=== PATIENT | female | born 1960 | race Caucasian/White ===

== ENCOUNTER 2019-11-16 16:28 | Observation (INO) | payer OTHER, MEDICARE ==
[2019-11-16] MEDS ORDERED: 0.9 % SODIUM CHLORIDE 1,000 ML IV ONE ×2 (16:31→17:13)
[2019-11-16] MEDS ORDERED: ONDANSETRON HCL/PF 4 MG/ 2ML VIAL IVP ONE (16:32)
--- NOTE | 2019-11-16 16:34 | ED Physician Documentation ---
Nausea/Vomiting/Diarrhea - HISTORIAN Historian: patient - HPI Chief Complaint: Nausea,Vomiting,Diarrhea Additional Information: 59 year old female presents with c/o nausea, vomiting, and diarrhea that started several days ago; cough and congestion started yesterday. She denies any fever or chills. Denies eating anything bad. States that she has not been able to hold anything down and has not been able to take her medications. Onset: days ago Duration: gradual Timing: gradual onset, still present Context: denies: out of country travel, bad food Severity: moderate - Associated Symptoms Vomiting: mild Diarrhea: mild, mucous Abdominal Pain: none - ROS CONST: none CVS/RESP: cough, dry cough. denies: shortness of breath GI/: none EYES/ENT: none MS/SKIN/LYMPH: denies: rash NEURO/PSYCH: none - PAST HX Past History: diabetes Type 2 Other History: hypertension Immunizations: UTD. denies: influenza Allergies/Adverse Reactions: Allergies Allergy/AdvReac Type Severity Reaction Status Date / Time codeine Allergy Verified 11/16/19 16:49 Penicillins Allergy Verified 11/16/19 16:49 tramadol Allergy Verified 11/16/19 16:50 trazodone Allergy Verified 11/16/19 16:50 Home Medications: Ambulatory Orders Medication Instructions Recorded Aspirin [Jimena] 81 mg PO DAILY 12/01/15 Nitroglycerin [Nitrostat] 0.4 mg SL Q5MIN PRN 12/01/15 Azithromycin [Zithromax] 250 mg PO DAILY #4 tablet 11/17/19 Benzonatate [Tessalon] 200 mg PO TID PRN #21 capsule 11/17/19 Ondansetron HCl Rapdis [Zofran Odt] 4 mg PO Q6 PRN #15 tab.rapdis 11/17/19 Potassium Chloride [Klor-Con M20] 20 meq PO DAILY #7 tab.er.prt 11/17/19 - SOCIAL HX Smoking History: non-smoker Alcohol Use: none Drug Use: none - FAMILY HX Family History: none - VITAL SIGNS Vital Signs: Vital Signs Temp Pulse Resp BP Pulse Ox 97.8 F 70 20 150/77 97 11/17/19 14:00 11/17/19 14:00 11/17/19 14:00 11/17/19 14:00 11/17/19 14:00 - REVIEWED ASSESSMENTS Nursing Assessment Reviewed: Yes Vitals Reviewed: Yes ED Results Lab/Radiology - Lab Results Lab Results: Lab Results 11/16/19 11/16/19 11/16/19 16:36 16:36 16:35 WBC 10.60 K/ul K/ul (4.00-12.00) RBC 4.47 M/ul M/ul (3.90-5.20) Hgb 13.0 g/dL g/dL (11.5-16.0) Hct 38.3 % % (34.5-46.5) MCV 86.0 fl fl (80.0-100.0) MCH 29.2 pg pg (28.0-34.0) MCHC 34.1 g/dL g/dL (30.0-36.0) RDW 13.4 % % (11.3-14.3) Plt Count 262 K/mm3 K/mm3 (130-400) Neut % (Auto) 77.6 % % (39.0-79.0) Lymph % (Auto) 13.2 % L % (16.0-50.0) Scurry % (Auto) 6.8 % % (0.0-11.0) Eos % (Auto) 1.8 % % (0.0-6.8) Baso % (Auto) 0.6 % % (0.0-1.5) Neut # (Auto) 8.3 # k/uL H # k/uL (1.4-7.7) Lymph # (Auto) 1.4 # k/uL # k/uL (0.6-4.0) Scurry # (Auto) 0.7 # k/uL # k/uL (0.0-0.9) Eos # (Auto) 0.2 # k/uL # k/uL (0.0-0.6) Baso # (Auto) 0.1 # k/uL # k/uL (0.0-0.5) Sodium 131 mmol/L L mmol/L (137-145) Potassium 2.7 mmol/L L mmol/L (3.5-5.1) Chloride 95 mmol/L L mmol/L (98-107) Carbon Dioxide 27 mmol/L mmol/L (22-30) Anion Gap 11.7 BUN 28 mg/dL H mg/dL (7-17) Creatinine 1.25 mg/dL H mg/dL (0.52-1.04) Est GFR ( Amer) > 60 (60 - ) Est GFR (Non-Af Amer) > 60 (60 - ) Glucose 306 mg/dL H mg/dL (74-106) Calcium 8.3 mg/dL L mg/dL (8.4-10.2) Total Bilirubin 0.6 mg/dL mg/dL (0.2-1.3) AST 25 U/L U/L (15-46) ALT 17 U/L U/L (4-35) Alkaline Phosphatase 106 U/L U/L (38-126) Total Protein 5.9 g/dL L g/dL (6.3-8.2) Albumin 3.1 g/dL L g/dL (3.5-5.0) Influenza A (Rapid) Negative (NEGATIVE) Influenza B (Rapid) Negative (NEGATIVE) - Orders Orders: ED Orders Category Date Time Status Continuous EKG monitoring Q4H Care 11/16/19 16:31 Active Continuous Pulse Oximetry Q4H Care 11/16/19 16:[address] IV Lock 1T Care 11/16/19 16:31 Active CHEST 2VIEW [RAD] Stat Exams 11/16/19 Completed CBC/PLATELET/DIFF Stat Lab 11/16/19 16:36 Completed CMP Stat Lab 11/16/19 16:36 Completed INFLUENZA A&B Stat Lab 11/16/19 Uncollected INFLUENZA A&B Stat Lab 11/16/19 16:35 Completed 0.9 % Sodium Chloride [Normal Saline] 1,000 ml Med 11/16/19 16:31 Discontinued IV Q1H 0.9 % Sodium Chloride [Normal Saline] 1,000 ml Med 11/16/19 17:13 Discontinued IV Q1H Ondansetron HCl/Pf [Zofran] Med 11/16/19 16:32 Discontinued 4 mg IVP NOW ONE Potassium Chloride [Klor-Con M20] Med 11/16/19 17:13 Discontinued 40 meq PO NOW ONE Oxygen Daily Oxygen 11/16/19 16:45 Ordered Nausea Physical Exam - EXAM General Appearance: alert, mild distress EENT: eye inspection normal, ENT inspection normal, pharynx normal, dry mucous membranes Neck: normal inspection, supple Respiratory: breath sounds normal CVS: heart sounds normal Abdomen: non-tender Skin: warm/dry, normal color Extremities: non-tender, normal range of motion Neuro/Psych: oriented X3, CN's nml as tested, motor nml, sensation nml, mood/aff ect nml, cognition normal Discharge Clincal Impression: Viral gastritis, Hypovolemia, Hypokalemia Hypertension Qualifiers: Hypertension type: essential hypertension Qualified Code(s): I10 - Essential (primary) hypertension Condition: Good Disposition: 01 HOME, SELF-CARE Decision to Admit: [id number] Decision Time: 17:30
[2019-11-16 16:42] LABS: BASOPHILS % 0.6 % (0.0-1.5); NEUTROPHILS # 8.3 # k/uL (1.4-7.7)
[2019-11-16 16:48] LABS: eGFR (Non-African) > 60
[2019-11-16] MEDS ORDERED: POTASSIUM CHLORIDE 20 MEQ TABLET.ER PO ONE (17:13)
[2019-11-16] MEDS ORDERED: PROMETHAZINE HCL 25 MG in 0.9 % SODIUM CHLORIDE 50 ML IV PRN (17:21)
--- NOTE | 2019-11-16 17:37 | Diagnostic Imaging Report ---
PATIENT MR#: [id number] PATIENT PATIENT NAME: HARDEEP RUTHERFORD DATE OF : 1960 REFERRING PHYSICIAN: Angeli Mckay EXAM DATE: 11/16/2019 ACCESSION NUMBER: [id number] EXAM DESCRIPTION: CHEST 2VIEW PA and lateral chest Clinical history: Cough and congestion. Findings: Examination of the chest in PA and lateral views with no prior films for comparison demons trates elevation left hemidiaphragm with discoid changes in the left base. The right lung is clear. Cardiac silhouet te is enlarged and the aorta is atherosclerotic. Monitor leads superimpose the chest. Impression: 1. Cardiomegaly and aortic atherosclerosis. 2. Elevated left hemidiaphragm with discoid changes in the left base. Read by: Dr. Benson Vergara Transcribed by: Transcribed Date: Electronically signed by: Dr. Benson Vergara Date signed: 11/16/2019 5:37:27 PM
[2019-11-16] MEDS ORDERED: POTASSIUM CHLORIDE 40 MEQ/NS 1,000 ML IV ONE (17:54)
[2019-11-16] MEDS ORDERED: CLOPIDOGREL BISULFATE 75 MG TABLET PO SCH (18:00)
[2019-11-16] MEDS: POTASSIUM CHLORIDE 40 MEQ/NS 1,000 ML IV SCH (18:03)
[2019-11-16] MEDS ORDERED: LISINOPRIL 20 MG TABLET PO ONE ×2 (18:04→18:05)
[2019-11-16] MEDS ORDERED: CLOPIDOGREL BISULFATE 75 MG TABLET ONE (18:04)
[2019-11-16 18:09] VITALS: BMI 40.9
[2019-11-16] MEDS: LISINOPRIL 20 MG TABLET PO SCH (18:10)
[2019-11-16] MEDS: ONDANSETRON HCL/PF 4 MG/ 2ML VIAL IVP PRN (18:15)
[2019-11-16] MEDS ORDERED: SOUTH LOCK-UP KEY 1 EACH EACH MC ONE (19:47)
[2019-11-17] MEDS ORDERED: POTASSIUM CHLORIDE 40 MEQ/NS 1,000 ML IV ONE (00:44)
[2019-11-17] MEDS ORDERED: ONDANSETRON HCL/PF 4 MG/ 2ML VIAL ONE (00:53)
[2019-11-17] MEDS: ONDANSETRON HCL/PF 4 MG/ 2ML VIAL IVP PRN (01:04)
[2019-11-17] MEDS ORDERED: MECLIZINE HCL 25 MG TABLET PO ONE ×2 (05:00→05:02)
[2019-11-17] MEDS: POTASSIUM CHLORIDE 40 MEQ/NS 1,000 ML IV SCH ×2 (05:14→13:20)
[2019-11-17] MEDS ORDERED: ACETAMINOPHEN 325 MG TABLET ONE ×2 (05:18→13:06)
[2019-11-17] MEDS: ACETAMINOPHEN 325 MG TABLET PO PRN ×2 (05:22→13:18)
[2019-11-17 07:40] LABS: eGFR (Non-African) > 60
[2019-11-17 07:43] LABS: NEUTROPHILS # 9.8 # k/uL (1.4-7.7)
[2019-11-17 08:51] LABS: SEGMENTED NEUTROPHILS % 79 % (39-79)
[2019-11-17 08:52] LABS: HYPOCHROMASIA 1+ (NEGATIVE)
[2019-11-17] MEDS ORDERED: LISINOPRIL 20 MG TABLET PO ONE (08:56)
[2019-11-17] MEDS: LISINOPRIL 20 MG TABLET PO SCH (09:03)
[2019-11-17] MEDS ORDERED: POTASSIUM CHLORIDE 20 MEQ TABLET.ER PO ONE (14:13)
[2019-11-17] MEDS ORDERED: AZITHROMYCIN 250 MG TABLET PO ONE ×3 (14:38→16:11)
--- NOTE | 2019-11-17 14:39 | Discharge Summary ---
Discharge Summary - Discharge [facility] Admission Date: 11/16/19 Discharge Date: 11/17/19 Discharge To: Home History of Present Illness: 59 year old female presents with c/o nausea, vomiting, and diarrhea that started several days ago; cough and congestion started yesterday. She denies any fever or chills. Denies eating anything bad. States that she has not been able to hold anything down and has not been able to take her medications. Condition at Discharge: Stable Home Medications: Ambulatory Orders Medication Instructions Recorded Aspirin [Jimena] 81 mg PO DAILY 12/01/15 Nitroglycerin [Nitrostat] 0.4 mg SL Q5MIN PRN 12/01/15 Azithromycin [Zithromax] 250 mg PO DAILY #4 tablet 11/17/19 Benzonatate [Tessalon] 200 mg PO TID PRN #21 capsule 11/17/19 Ondansetron HCl Rapdis [Zofran Odt] 4 mg PO Q6 PRN #15 tab.rapdis 11/17/19 Potassium Chloride [Klor-Con M20] 20 meq PO DAILY #7 tab.er.prt 11/17/19 Consultations this Visit: None Procedures this Visit: None Allergies/Adverse Reactions: Allergies Allergy/AdvReac Type Severity Reaction Status Date / Time codeine Allergy Verified 11/16/19 16:49 Penicillins Allergy Verified 11/16/19 16:49 tramadol Allergy Verified 11/16/19 16:50 trazodone Allergy Verified 11/16/19 16:50 Discharge Summary: 59 year old female sitting up in bed; states that she if feeling much better; she has been able to drink without nausea or vomiting. No vomiting or diarrhea since admission; has been able to take her meds. She c/o cough and congestion at this time; but would like to go home. Will start patient on Z-pack and tessalon pearls; she will f/u with PCP next week. Hospital Course: IV fluids with potassium, oral potassium - Final Diagnosis (1) Nausea and vomiting Problems: Stable; non noted since admission Right or Left: Right (2) Diabetes Problems: Stable Right or Left: Right (3) Hypertension Problems: Stable Right or Left: Right (4) Upper respiratory infection Problems: Zithromax and tessalon Right or Left: Right
[2019-11-17 15:01] VITALS: BP 150/77
[2019-11-17] MEDS ORDERED: POTASSIUM CHLORIDE 20 MEQ TABLET.ER ONE (16:01)
[2019-11-17] MEDS ORDERED: SOUTH LOCK-UP KEY 1 EACH EACH MC ONE (17:17)
== END 2019-11-17 17:30 | disposition home or self-care (01) ==
LOC: ED 16:28 → SOUTH 17:17
PROVIDERS: ADMIT Nurse Practitioner Family; ATTEND Nurse Practitioner Family
DX: E86.1 Hypovolemia (principal); A08.4 Viral intestinal infection, unspecified; E87.6 Hypokalemia; I10 Essential (primary) hypertension; E11.9 Type 2 diabetes mellitus without complications; J06.9 Acute upper respiratory infection, unspecified; R11.2 Nausea with vomiting, unspecified
CPT/HCPCS: 80053; 85025; 87400; 96361; 96374; 96375; 99218; 99283; 99284; J2405; A9270; G0378; J3480